=== PATIENT | male | born 1990 | race Caucasian/White ===

== ENCOUNTER 2016-05-19 15:30 | Emergency (ER) | payer OTHER ==
[~2016-05-19] VITALS: Ht 177.8 cm; Wt 100.0 kg
[2016-05-19 15:31] VITALS: BP 138/75; PULSE 97; RESP 12; TEMP 98.9; O2SAT 97
[2016-05-19] MEDS ORDERED: DOXY100C PO (16:50)
--- NOTE | 2016-05-19 16:50 | PD ---
HPI Chief Complaint: Cold / Flu Symptoms Time Seen by Provider: 16:24 Travel History International Travel<30 days: No Contact w/Intl Traveler<30days: No Traveled to known affect area: No History of Present Illness HPI Patient is a 26-year-old male wore presents emergency department for evaluation of fever of almost a months duration. States intermittently needs to having upper respiratory symptoms including sore throat. Patient is been seen by the [place] and [facility] He has had an extensive workup including rapid strep, HIV, hepatitis, cryptococcal antigen , RPR, influenza, mono spot as well as other serologies and multiple CBCs, CAT scan of his neck and chest x-rays. He was also placed on steroids as well as azithromycin. The only thing that helped him was azithromycin but after completed the course he began having fevers and sore throat again a week later. All the above workup has been negative. [facility] and [facility] recommended he come to the emergency department for an additional evaluation because they could not determine the source of his fever. Patient states he feels well currently but fevers and sore throat or intermittent and continued to aggravate him. He denies any chest pain shortness of breath abdominal pain nausea vomiting diarrhea rashes earaches. PFSH Past Medical History Medical History: Denies Significant Hx Social History Alcohol Use: Yes (occ) Tobacco Use: Yes (occ) Substance Use: No Allergies-Medications (Allergen,Severity, Reaction): Coded Allergies: No Known Allergies (Unverified , 05/19/16) Reported Meds & Prescriptions Reported Meds & Active Scripts Active Doxycycline Hyclate 100 Mg Cap 100 Mg PO BID 7 Days Review of Systems Except as stated in HPI: all other systems reviewed are Neg Physical Exam Narrative GENERAL: Well-developed well-nourished no apparent distress SKIN: Warm and dry. Completed toe skin exam shows no rashes and no lesions. HEAD: Atraumatic. Normocephalic. EYES: Pupils equal and round. No scleral icterus. No injection or drainage. ENT: No nasal bleeding or discharge. TMs clear bilaterally, oropharynx is minimally erythematous but clear. Moist mucous membranes per NECK: Trachea midline. No JVD. CARDIOVASCULAR: Regular rate and rhythm. No murmur appreciated. RESPIRATORY: No accessory muscle use. Clear to auscultation. Breath sounds equal bilaterally. GASTROINTESTINAL: Abdomen soft, non-tender, nondistended. Hepatic and splenic margins not palpable. MUSCULOSKELETAL: No obvious deformities. No clubbing. No cyanosis. No edema. NEUROLOGICAL: Awake and alert. No obvious cranial nerve deficits. Motor grossly within normal limits. Normal speech. PSYCHIATRIC: Appropriate mood and affect; insight and judgment normal. Data Data Last Documented VS Vital Signs Date Time Temp Pulse Resp B/P Pulse Ox O2 Delivery O2 Flow Rate FiO2 05/19/16 15:31 98.9 97 12 138/75 97 Room Air [facility] Medical Decision Making Medical Screen Exam Complete: Yes Emergency Medical Condition: Yes Differential Diagnosis Fever of unknown origin, strep throat, viral illness, Narrative Course Further history the patient he has not had any foreign travel. No sick close contacts. Review of his records from the [place] show that he has indeed had multiple testings and no definitive cause of his fever is yet been established. The record from the [place] also suggested he go to [place] for consideration of lab work and chest x-ray. I've discussed that I'm happy to pursue these test however he is afebrile here and appears well. I've suggested that he could follow-up with an infectious disease officer which may be more beneficial for him and he would rather do this. He also requests additional antibiotic therapy. I think this is reasonable to try and will place him on doxycycline. I don't think that it will cure him however it is worth a try. Discussed with him needs follow-up with infectious disease officer either here or in his home [facility]. Discussed return to ED criteria. He would like to defer any further workup at this time. Diagnosis Primary Impression: Fever Qualified Code: R50.9 - Fever, unspecified fever cause Referrals: Sandrine Hodge MD Med/Other Pt SpecificInfo: Prescription(s) given Scripts Doxycycline Hyclate 100 Mg Pat575 Mg PO BID 7 Days Ref 0 Prov:Ronald Murrell MD 05/19/16 Disposition: 01 DISCHARGE HOME Condition: Stable Ronald Murrell MD May 19, 2016 16:50
== END 2016-05-19 17:15 | disposition home or self-care (01) ==
LOC: NEPB 15:30
DX: R50.9 Fever, unspecified (principal); J02.9 Acute pharyngitis, unspecified; F17.210 Nicotine dependence, cigarettes, uncomplicated
CPT/HCPCS: 99283